=== PATIENT | male | born 1970 | race Caucasian/White ===

== ENCOUNTER 2020-07-20 15:09 | Outpatient (REF) | payer OTHER, SELFPAY | END 2020-07-20 15:10 | disposition home or self-care (01) | LOC: HO.LNP 15:09 | PROVIDERS: Visit Provider Internal Medicine | DX: Z20.828 Contact with and (suspected) exposure to other viral communicable diseases (principal) | CPT/HCPCS: 87635 ==

== ENCOUNTER 2021-02-17 09:34 | Day surgery (SDC) | payer OTHER, SELFPAY ==
--- NOTE | 2021-02-16 13:38 | P.CONAN_ITS ---
Documented by User: Sharona Roy 02/16/21 13:49 HPI - Anesthesia Eval Consult details Narrative: 50yo M for Upper Endoscopy with Balloon Dilitation Reports rxn to anesthesia as a child - ? blood poisoning, no anaphylaxis. Required O2 tent for one week post op. Has h/o colonoscopy and colon resection without problem with anesthesia. [facility] Past Medical History Medical History Celiac disease GERD (gastroesophageal reflux disease) Surgical History Surgical History (Updated 02/17/21 @ 10:25 by Hanna Johnson) H/O colonoscopy (~09/2015) History of bowel resection (~01/2018) History of esophagogastroduodenoscopy (EGD) History of placement of ear tubes (~1976) Social History Social History (Updated 02/17/21 @ 10:23 by Hanna Johnson) Smoking Status: Current every day smoker Packs Per Day: 0.5 Cigarettes Per Day: 15 Smoked in Last 30 Days: Yes Use of substances other than those prescribed or required for medical reasons: Yes Substance Use Frequency: Occasionally Are you DNR?: No Advance Directives: No Advance Directives Information Provided: Yes Meds Allergies Allergy/AdvReac Type Severity Reaction Status Date / Time animal dander [ANIMAL DANDER] Allergy Unknown ITCHY EYES Unverified 06/18/20 14:52 cat dander [CATS] Allergy Unknown EYE Unverified 06/18/20 14:52 SWELLING dog dander [DOG] Allergy Unknown EYE Unverified 06/18/20 14:52 SWELLING anesthesia not used any more Allergy Unknown anaphylaxis Uncoded 03/25/20 00:00 ( morphine AdvReac Unknown hiccups x3 Uncoded 03/25/20 00:00 days Exam Exam Date and Time: February 16, 2021 1338 Assessment and Plan Assessment Anesthesia Assessment: Chart Reviewed Documented by User: Hanna Johnson 02/17/21 10:27 [facility] Past Medical History Medical History Celiac disease GERD (gastroesophageal reflux disease) Family History Family history of problems with anesthesia: No Surgical History Surgical History (Updated 02/17/21 @ 10:25 by Hanna Johnson) H/O colonoscopy (~09/2015) History of bowel resection (~01/2018) History of esophagogastroduodenoscopy (EGD) History of placement of ear tubes (~1976) Social History Social History (Updated 02/17/21 @ 10:23 by Hanna Johnson) Smoking Status: Current every day smoker Packs Per Day: 0.5 Cigarettes Per Day: 15 Smoked in Last 30 Days: Yes Use of substances other than those prescribed or required for medical reasons: Yes Substance Use Frequency: Occasionally Are you DNR?: No Advance Directives: No Advance Directives Information Provided: Yes Meds Allergies Allergy/AdvReac Type Severity Reaction Status Date / Time animal dander [ANIMAL DANDER] Allergy Unknown ITCHY EYES Unverified 06/18/20 14:52 cat dander [CATS] Allergy Unknown EYE Unverified 06/18/20 14:52 SWELLING dog dander [DOG] Allergy Unknown EYE Unverified 06/18/20 14:52 SWELLING anesthesia not used any more Allergy Unknown anaphylaxis Uncoded 03/25/20 00:00 ( morphine AdvReac Unknown hiccups x3 Uncoded 03/25/20 00:00 days Exam Height,Weight and Vital Signs: Vital Signs Temp Pulse Resp BP Pulse Ox 02/17/21 10:11 97.5 F 94 18 133/68 98 Airway Mallampati Class: III TM Dist: >3cm Neck ROM: Full Denture: Upper Heart: RRR Lungs: CTAB Assessment and Plan Assessment Anesthesia Assessment: Anesthesia Plan Discussed and Chart Reviewed Final Anesthetic Review NPO: Yes ASA Class: II Final Preanesthetic Review: No Changes in Pt Med Stat, Meds/Allgs Chart Reviewed, Consent Obtained/Reviewed and Anes Risks/Benef Reviewed Patient Risk: Low Procedure Risk: Low Assessment/Block/Sedation in SS: Assess/Block/Sedation-SS Anesthetic Plan Anesthetic Plan: MAC: Disposition: Standard PACU
[2021-02-17 10:11] VITALS: BP 133/68; PULSE 94; RESP 18; TEMP 36.4; O2SAT 98; BMI 23.8
[2021-02-17] MEDS: Lactated Ringers 1,000 ML 100 ML IVCONT (10:20)
[2021-02-17 11:09] VITALS: BP 103/71; PULSE 87; RESP 16; TEMP 36.6; O2SAT 97
--- NOTE | 2021-02-17 11:20 | PM.OP ---
Brief Operative Note Date of Service: 02/17/21 Pre-op diagnosis: Dysphagia, Celiac disease, GERD Post-op diagnosis: other (Reflux esophagitis, Esophageal stricture, Hiatal hernia, Gastritis) Procedure: EGD with biopsies and Balloon dilation Surgeon: Paulo Mehta Anesthesia: MAC Was an Biochemistry Professor used for this Procedure?: No Estimated blood loss (mL): 4.0 Pathology: other (A. Descending duodenum B. Gastric antrum C. EG Junction at 35cm D. Esophagus at 2cm) Condition: stable Disposition: PACU
[2021-02-17 11:24] VITALS: BP 117/74; PULSE 71; RESP 17; TEMP 36.7; O2SAT 97
--- NOTE | 2021-02-17 21:48 | OP_ITS ---
SURGEON: Paulo Mehta MD INDICATIONS: The patient presents for evaluation of chronic gastroesophageal reflux, dysphagia, and history of celiac disease. Full consent has been obtained from him for the procedure, including the risks of bleeding and perforation. PREOPERATIVE DIAGNOSIS: POSTOPERATIVE DIAGNOSIS: PROCEDURE PERFORMED: ESTIMATED BLOOD LOSS: COMPLICATIONS: ANESTHESIA: Medication used, monitored anesthesia care. ASSISTANTS: SPECIMENS: PREOPERATIVE DIAGNOSES: Dysphagia and history of celiac disease. POSTOPERATIVE DIAGNOSES: Dysphagia, history of celiac disease, reflux esophagitis, mild fibrotic distal esophageal stricture, hiatal hernia, gastritis, and duodenitis. PROCEDURES PERFORMED: Esophagogastroduodenoscopy with biopsies and balloon dilation. DESCRIPTION OF PROCEDURE: The patient was placed in the left lateral decubitus position. The Olympus video gastroscope was passed in the posterior oropharynx and upper esophagus under direct vision. The scope was passed easily to the distal esophagus. The gastroesophageal junction was notable for some edema, friability, and some less than 5 mm erosions. There also appeared to be a nonobstructing fibrotic esophageal stricture just above the EG junction. The scope easily entered the stomach. There was a small to moderate sized hiatal hernia. The scope was advanced to the pylorus, and the duodenum was cannulated to the descending portion. The duodenum including the bulb was carefully inspected. There was some duodenitis in the duodenal bulb. The second and third portions of the duodenum had some edema and a question of some scalloping of the duodenal folds. Biopsies were obtained of the second and third portions of duodenum. The scope was withdrawn back to the stomach. The gastric antrum had some areas of erythema and edema consistent with gastritis. There were no erosions or ulceration. There was good peristalsis. Biopsies were obtained in the gastric antrum. The scope was retroflexed visualizing the proximal stomach carefully. There was no evidence of any mass nor ulceration. The scope was straightened and withdrawn back into the esophagus. I did use a [employer] Incremental balloon to dilate the distal esophagus and gastroesophageal junction from 18 mm to 19 mm to 20 mm at the recommended pressure for between 30 and 60 seconds each. The balloon itself pulled easily into and out of the stomach and there was really no appreciable heme noted after dilation. I did obtain biopsies of the EG junction at 35 cm. The scope was then withdrawn through the remainder of the esophagus. The proximal esophagus appeared normal without any esophageal rings nor stricture. Biopsies were obtained at 25 cm. The scope was withdrawn from the patient. He tolerated the procedure well and was returned to the recovery area in stable condition. IMPRESSION: 1. Reflux esophagitis. 2. Hiatal hernia. 3. Nonobstructing distal esophageal stricture. 4. Rule out eosinophilic esophagitis. 5. Rule out gastritis. 6. History of celiac disease. PLAN: The results of the biopsies will be checked. He was recently changed to omeprazole 40 mg daily and he was advised to continue this for better control of his reflux and heartburn symptoms. His dysphagia may be related to the mild stricture as well as to some ongoing reflux and esophageal spasm. He was advised to try to stay on a gluten-free diet as best as possible. He was advised to see me in the fall for a followup visit. MD ROBER Olmstead/CLAUDIA / [phone] MTDD
== END 2021-02-17 12:32 | disposition home or self-care (01) ==
PROVIDERS: PCP Internal Medicine; Visit Provider Internal Medicine
PROC: (CPT 43249; principal; 2021-02-17 10:30)
DX: K22.2 Esophageal obstruction (principal); K21.00 Gastro-esophageal reflux disease with esophagitis, without bleeding; K29.50 Unspecified chronic gastritis without bleeding; K29.80 Duodenitis without bleeding; K44.9 Diaphragmatic hernia without obstruction or gangrene; K90.0 Celiac disease; Z90.49 Acquired absence of other specified parts of digestive tract
CPT/HCPCS: 43249; 43239; 88305; 88342; C1726; J3010

== ENCOUNTER 2021-05-28 09:06 | Outpatient (REF) | payer OTHER, SELFPAY ==
--- NOTE | ~2021-05-28 | FL_ITS ---
EXAMINATION: FL BARIUM SWALLOW CLINICAL INFORMATION: Esophageal dysphagia. Patient notes recent endoscopy with dilatation. COMPARISON: CT abdomen 02/21/2018. Upper GI series 12/09/2011 TECHNIQUE: Barium swallow examination is performed using fluoroscopic evaluation in addition to multiple fluoroscopic spot views, including cine images during swallowing. Barium tablet also used. The patient is imaged both upright and prone and using both thick and thin sulfate along with effervescent granules. Fluoroscopy time: 1.7 minutes DAP: 4.398 Gycm2 Images: 29 FINDINGS: Swallowing function is normal and there is no aspiration. The cervical esophagus has no web or diverticulum or stricture. The cervical thoracic junction appears normal. No cervical achalasia. The thoracic esophagus shows normal motility with no obstruction, stricture, or ulceration. Barium tablet readily passed from mouth to stomach without delay. There is a small transient sliding hiatal hernia only noted during the prone Valsalva maneuver. There is prominent spontaneous gastroesophageal reflux noted during fluoroscopy to the proximal thoracic esophagus. FL/FL barium swallow IMPRESSION: 1. Small transient sliding hiatal hernia during prone Valsalva maneuver. 2. Prominent gastroesophageal reflux to the proximal thoracic esophagus. 3. No stricture or ulceration.
== END 2021-05-28 09:07 | disposition home or self-care (01) ==
LOC: HO.XRAY 09:06
PROVIDERS: PCP Internal Medicine; Visit Provider Internal Medicine
DX: R13.19 Other dysphagia (principal)
CPT/HCPCS: 74220

== ENCOUNTER 2022-02-01 07:00 | Outpatient (REF) | payer OTHER, SELFPAY ==
[2022-02-01 07:18] LABS: MANUAL DIFF FLAG NO
[2022-02-01 07:38] LABS: Basophils Absolute Auto 0.1 X10*3/uL (0.0-0.2); Basophils Percent Auto 1.4 % (0-2); Eosinophils Absolute Auto 0.2 X10*3/uL (0.0-0.4); Eosinophils Percent Auto 2.2 % (0-4); Hematocrit 48.3 % (42.0-52.0); Hemoglobin 16.2 g/dl (14.0-18.0); Imm Gran Abs Auto 0.03 X10*3/uL (0.00-0.03); Imm Gran Pct Auto 0.4 % (0.0-0.4); Lymphocytes Absolute Auto 1.9 X10*3/uL (1.2-4.9); Lymphocytes Percent Auto 24.2 % (20-40); Mean Corpuscular HGB Conc 33.5 g/dl (31.0-36.0); Mean Corpuscular Hemoglobin 31.2 pg (27.0-33.0); Mean Corpuscular Volume 92.9 fL (80.0-98.0); Mean Platelet Volume 9.3 fL (9.4-12.4); Monocytes Absolute Auto 0.7 X10*3/uL (0.1-1.2); Monocytes Percent Auto 8.6 % (2-11); Neutrophils Absolute Auto 4.9 x10*3/uL (2.0-8.3); Neutrophils Percent Auto 63.2 % (45-73); Platelet Count 217 X10*3/uL (160-400); Red Cell Distribution Width 13.2 % (11.0-16.0); White Blood Count 7.8 X10*3/uL (4.8-10.8)
[2022-02-01 08:25] LABS: Alanine Aminotransferase 19 U/L (0-40); Albumin Level 4.2 g/dL (3.5-5.0); Alkaline Phosphatase 80 U/L (39-117); Anion Gap 14 (12-20); Aspartate Amino Transferase 19 U/L (5-37); Bilirubin Total 0.4 mg/dL (0.0-1.0); Blood Urea Nitrogen 20 mg/dL (9-16); Calcium 9.3 mg/dL (8.4-10.2); Carbon Dioxide 24 mmol/L (22-29); Chloride 108 mmol/L (96-108); Cholesterol 259 mg/dL; Estimated Glomerular Filt Rate > 60; Glucose Random 91 mg/dL (60-115); HDL Cholesterol 35 mg/dL; LDL Cholesterol Calculated 145 mg/dl; Sodium 141 mmol/L (135-145); Total Protein 7.1 g/dL (6.5-8.0); Triglycerides 396 mg/dL
== END 2022-02-01 07:01 | disposition home or self-care (01) ==
LOC: HO.LAB 07:00
PROVIDERS: PCP Internal Medicine; Visit Provider Internal Medicine
DX: Z00.00 Encounter for general adult medical examination without abnormal findings (principal)
CPT/HCPCS: 36415; 80053; 80061; 85025

== ENCOUNTER 2025-06-11 03:20 | Emergency (ER) | payer OTHER, SELFPAY ==
--- NOTE | ~2025-06-11 | XR_ITS ---
CLINICAL HISTORY: dyspnea, productive cough 1 view chest x-ray Comparison: None provided Findings: No consolidation or effusion. Heart size is normal. No acute fracture. IMPRESSION: No consolidation. This document has been electronically signed by: Zay Combs MD on 06/11/2025 04:38:27
[2025-06-11 03:23] VITALS: BP 150/83; PULSE 90; RESP 22; TEMP 36.7; O2SAT 96; BMI 24.7
--- NOTE | 2025-06-11 03:36 | ECG_ITS ---
Test Reason : SOB Blood Pressure : */* mmHG Vent. Rate : 91 BPM Atrial Rate : 91 BPM P-R Int : 102 ms QRS Dur : 100 ms QT Int : 414 ms P-R-T Axes : 81 45 103 degrees QTcB Int : 509 ms Normal sinus rhythm Lrsfn-Eihxzwcki-Lteug Abnormal ECG No previous ECGs available Referred By: Aicha Acosta Electronically Signed By: FAWAD FRIEDMAN MD
--- NOTE | 2025-06-11 03:37 | ED_ITS ---
HPI - SOB/Dyspnea General Chief Complaint: Dyspnea Stated Complaint: difficulty breathing/ ? pneumonia Time Seen by Provider: 06/11/25 03:26 Source: patient Mode of arrival: ambulatory Limitations: no limitations History of Present Illness ED Provider: Dr. Balbina Acosta HPI Narrative: 54-year-old male with a history of mild asthma presenting with shortness of breath and cough that has been ongoing for the last 3 days or so. Describes a cough that is so severe that he sometimes nearly passes out. Has never lost consciousness. Denies associated chest pain. No reported fever. No known sick contacts or recent travel. Denies lower extremity edema or pain. Denies abdominal pain, nausea, vomiting, bowel changes or urinary complaints. Has been using his inhaler without relief. Admits that in the last couple of hours he is ?used it so many times he can not count?. Related Data Previous Rx's ?Medication ?Instructions ?Recorded albuterol sulfate 90 mcg/actuation 2 inh inhalation Q4 H PRN shortness 06/11/25 breath activated powder inhaler of breath #1 ea codeine 10 mg-guaifenesin 100 mg/5 5 ml PO Q6H PRN cou gh #118 mL 06/11/25 mL oral liquid (G Tussin AC) prednisone 50 mg tablet 50 mg PO DAILY 5 days #5 tab s 06/11/25 Allergies Allergy/AdvReac Type Severity Reaction Status Date / Time animal dander (ANIMAL DANDER) Allergy Unknown ITCHY EYES Verified 06/11/25 03:25 cat dander (CATS) Allergy Unknown EYE Verified 06/11/25 03:25 SWELLING dog dander (DOG) Allergy Unknown EYE Verified 06/11/25 03:25 SWELLING anesthesia not used any more Allergy Unknown anaphylaxis Uncoded 03/25/20 00:00 ( morphine AdvReac Unknown hiccups x3 Uncoded 03/25/20 00:00 days Review of Systems Review of Systems: As per HPI, full review of systems performed and negative but for the above mentioned pertinent positives and negatives. [facility] Past Medical History Medical History Celiac disease GERD (gastroesophageal reflux disease) Surgical History History of esophagogastroduodenoscopy (EGD) History of placement of ear tubes (~1976) H/O colonoscopy (~09/2015) History of bowel resection (~01/2018) Social History Social History Cigarette Packs Per Day: 0.5 Cigarettes Per Day: 15 Smoked in Last 30 Days: Yes Advance Directives: No Physical Exam Exam: Exam: GENERAL: Ill-appearing, moderate respiratory distress. SKIN: Normal skin color for ethnicity, warm, dry, no rashes noted. HEENT: Normocephalic, atraumatic, no stridor, EOMI. NECK: Soft, supple, full ROM, midline structures nontender, no step-offs, no deformities, no lymphadenopathy. CHEST: Heart regular tachycardia, symmetric chest rise and fall. PULMONARY: Diffuse wheezes throughout, tachypnea, poor air movement bilaterally, moderate respiratory distress. ABDOMINAL: Soft, nontender, quiet bowel sounds in all quadrants. : Deferred. MUSCULOSKELETAL: Normal tone, full range of motion, no deformities, no peripheral edema. NEURO: Alert and oriented to person, CN II through XII intact, no focal neurologic deficits. PSYCHIATRIC: Anxious affect, appropriate demeanor. Vital Signs: Vital Signs: Last Vital Signs Temp 97.9 F 06/11/25 03:56 Pulse 86 06/11/25 04:38 Resp 14 06/11/25 04:38 BP 142/81 H 06/11/25 04:38 Pulse Ox 98 06/11/25 04:38 O2 Del Method Room Air 06/11/25 04:38 BMI result Body Mass Index 24.7 Medications Administered Discontinued Medications Generic Name Dose Route Start Last Admin Trade Name Wesq PRN Reason Stop Dose Admin Albuterol Sulfate 2.5 mg/ 0 mg 06/11/25 04:17 06/11/25 04:22 Albuterol/Ipratropium 3 ml INHALE 06/11/25 04:18 2 dose ONCE ONE Administration Magnesium Sulfate 2 gm in 50 mls @ 150 mls/hr 06/11/25 03:35 06/11/25 04:37 Magnesium Sulfate/H2o IV 06/11/25 03:54 Infused ONCE ONE Infusion Methylprednisolone Sodium Succinate 60 mg 06/11/25 03:35 06/11/25 03:51 Methylprednisolone Sod Succ 125 Mg/2 Ml Vial IVPUSH 06/11/25 03:36 60 mg ONCE ONE Administration Medical Decision Making Medical Decision Making [facility] Narrative: Patient presents today with chief complaint of shortness of breath. Differential diagnosis includes, but is not limited to, upper respiratory infection, pneumonia, COPD exacerbation, asthma exacerbation, CHF, pneumothorax, pleural effusion, pulmonary embolism, ACS. Broad-based work-up will be initiated to evaluate for etiology of patient's symptoms. Differential Diagnosis Differential Diagnoses: The differential diagnosis associated with the presentation includes (As above) Admission/Observation Consideration of admission/observation: Escalation of care including admission/observation considered Lab Data [facility] Lab Attestation statement: I reviewed the patient's lab results. Labs: Lab Results 06/11/25 Range/Units 03:44 Influenza Type A (PCR) NEGATIVE (Negative) Influenza Type B (PCR) NEGATIVE (Negative) RSV RNA Qual (PCR) NEGATIVE (Negative) SARS-CoV-2 RNA (RT-PCR) NEGATIVE (Negative) Independent Interpretation I performed an independent interpretation of an: EKG and Plain X-Ray Interpretation: My independent interpretation of the ECG reveals normal sinus rhythm with rate of 91, normal axis, short W[place] interval, slurring of the upstroke in the QRS segment in the lateral leads, concern for potential WPW, no ST elevations or depressions to suggest ischemic changes, no previous for comparison. Radiology Impression Discussion of test interpretation with radiology: I have reviewed the radiologist's reading. Chronic Conditions Patient?s care impacted by: Other (asthma) Discharge Plan Discharge Clinical Impression: Asthma with acute exacerbation, Acute viral bronchitis Patient Disposition: Home, Self-Care Instructions: Asthma (ED), Acute Bronchitis (ED) Additional Instructions: Use your inhaler as needed for wheezing. If you need to use it more than once every 2 hours, he should probably come to the hospital for evaluation. Return to the ER with any new or worsening symptoms including: Fevers greater than 100?, worsening shortness of breath, changes in your sputum color, any new symptom that concerns you. Call 911 with any medical emergency. Prescriptions: New prednisone 50 mg tablet 50 mg PO DAILY 5 Days Qty: 5 0RF codeine-guaifenesin [G Tussin AC] 10-100 mg/5 mL liquid 5 ml PO Q6H PRN (Reason: cough) Qty: 118 0RF albuterol sulfate 90 mcg/actuation aerosol powdr breath activated 2 inh inhalation Q4H PRN (Reason: shortness of breath) Qty: 1 0RF Stand Alone Forms: Work/School Release Print Language: Senegalese
--- OUTSIDE RECORDS SUMMARY | 2025-06-11 03:42 | XMS_ITS | Clinical Summary ---
Author Organization [facility] Address [address] [facility] [place] [address] Care Team Providers Care Music Professor Name Role Phone Wayne Boggs APRN Primary Care Provide r Allergies Active Allergy Reactions Criticality Noted Date Comments Opioids - Morphine Analogues Other (See Comments) 09/16/2024 Excessive hicups Medications omeprazole (PriLOSEC) [address] Tillman ns:Laryngopharyn geal reflux (LPR) Take one tablet by mouth 1/2 hour before dinner. 30 capsule 11 09/16/2024 Active Active Problems No known active problems Social History Tobacco Use Types Packs/Day Years Used Date Smoking Tobacco: Every Day Cigarettes Smokeless Tobacco: Current Tobacco Cessation:Ready to Q uit: Not Asked; Counseling Given: Not Answered Sex and Gender Information Value Date Recorded Sex Assigned at Not on file Legal Sex Male 10:23 AM EDT Gender Identity Not on file Sexual Orientation Not on file Last Filed Vital Signs Vital Sign Reading Time Taken Comments Blood Pressure 142/92 09/16/2024 1:07 PM EST Pulse 77 09/16/2024 1:07 PM EST Temperature - - Respiratory Rate - - Oxygen Saturation 99% 09/16/2024 1:07 PM EST Inhaled Oxygen Concentration - - Weight - - Height - - Body Mass Index - - Plan of Treatment Health Maintenance Due Date Last Done Comments CT Colonography 1972 Colonoscopy 1972 Colorectal Cancer Screening 1972 FIT DNA 1972 FIT 1972 Sigmoidoscopy (10 year) with FIT yearly 1972 Sigmoidoscopy 1972 HIV screen 1990 Hepatitis C Screening 1990 Lipid Screening 1990 Hepatitis B vaccine (0-59 yrs) and Risk (1) 1991 Pneumoccocal Vaccine: 50+ (1 of 2 - PCV) 1991 Tetanus/Diphtheria/Pertussis Vaccines (1 - Tdap) 07/27 Zoster vaccine (1 of 2) 2022 Covid-19 Vaccine (1 - season) 2025 Influenza (Flu) vaccine (1 o f 1 - Influenza standard series) 06/02/2025 Insurance [facility] Care Teams Music Professor Relationship Specialty Start Date End Date Wayne Boggs APRN PCP - General Internal Medicine 09/16/24
--- OUTSIDE RECORDS SUMMARY | 2025-06-11 03:42 | XMS_ITS | Encounter Summary ---
Author Organization [facility] [place] [address] Care Team Providers Care Director Diversity Name Role Phone Wayne Boggs APRN Primary Care Provide r Encounter Details Date Type Department Care Team (Late st Contact Info) Description 10/23/2023 Notes Only [place] [address] [place] [address] [place] [address] Social History Tobacco Use Types Packs/Day Years Used Date Smoking Tobacco: Never Assessed Sex and Gender Information Value Date Recorded Sex Assigned at Not on file Legal Sex Male 10:23 AM EDT Gender Identity Not on file Sexual Orientation Not on file documented as of this encounter Plan of Treatment Not on file documented as of this encounter Visit Diagnoses Not on filedocumented in this encounter Care Teams Director Diversity Relationship Specialty Start Date End Date Wayne Boggs APRN PCP - General Internal Medicine 09/16/24 documented as of this encounter
--- OUTSIDE RECORDS SUMMARY | 2025-06-11 03:42 | XMS_ITS | Clinical Summary ---
Author Organization [facility] Address [address] [place] [address] Care Team Providers Care Political Advisor Name Role Phone Unavailable Primary Care Provider Unavailabl e Social History Tobacco Use Types Packs/Day Years Used Date Smoking Tobacco: Never Assessed Sex and Gender Information Value Date Recorded Sex Assigned at Not on file Legal Sex Male 2:42 PM EST Gender Identity Not on file Sexual Orientation Not on file Plan of Treatment Health Maintenance Due Date Last Done Comments DTaP,Tdap,and Td Vaccines (1 - Tdap) 1991 Hepatitis B Vaccines (1 of 3 - 19+ 3-dose series) 1991 Pneumococcal Vaccine: 50+ Ye ars (1 of 1 - PCV) 2022 Zoster Vaccines (1 of 2) 2022 COVID-19 Vaccine (1 - 2023-2 5 season) 2024 Depression Screening 10/02/2024 Influenza Vaccine (#1) 2025 HIB Vaccines Aged Out No longer eligi ble based on patient's age to complete this topic HPV Vaccines Aged Out No longer eligi ble based on patient's age to complete this topic Hepatitis A Vaccines Aged Out No long er eligible based on patient's age to complete this topic IPV Vaccines Aged Out No longer eligi ble based on patient's age to complete this topic MMR Vaccines Aged Out No longer eligi ble based on patient's age to complete this topic Meningococcal ACWY Vaccine Aged Out N o longer eligible based on patient's age to complete this topic Meningococcal B Vaccine Aged Out No l onger eligible based on patient's age to complete this topic RSV Immunization Patients Un melissa 20 months Aged Out No longer eligible b ased on patient's age to complete this topic Varicella Vaccines Aged Out No longer eligible based on patient's age to complete this topic
[2025-06-11] MEDS: Magnesium Sulfate/H2O 2 GM/50 ML PIGGYBACK IV (03:52)
[2025-06-11 03:56] VITALS: BP 143/89; PULSE 94; RESP 13; TEMP 36.6; O2SAT 97
[2025-06-11] MEDS: Albuterol Sulfate 2.5 MG, Albuterol/Iprat 2.5/0.5MG 3 ML 3 ML INHALE (04:22)
[2025-06-11 04:23] VITALS: PULSE 82; RESP 15; O2SAT 96
[2025-06-11 04:28] LABS: Resp Syncy Virus RNA Qual PCR NEGATIVE (Negative); SARS COV2 PCR INHOUSE NEGATIVE (Negative)
[2025-06-11 04:38] VITALS: BP 142/81; PULSE 86; RESP 14; O2SAT 98
[2025-06-11 06:52] VITALS: BP 127/70; PULSE 88; RESP 14; TEMP 36.6; O2SAT 95
[2025-06-11 07:13] VITALS: BP 127/70; PULSE 88; RESP 14; TEMP 36.6; O2SAT 95
== END 2025-06-11 07:15 | disposition home or self-care (01) ==
PROVIDERS: Emergency Provider Emergency Medicine
DX: J20.8 Acute bronchitis due to other specified organisms (principal); J45.901 Unspecified asthma with (acute) exacerbation; R05.9 Cough, unspecified; R06.02 Shortness of breath; R06.00 Dyspnea, unspecified; Z03.818 Encounter for observation for suspected exposure to other biological agents ruled out
CPT/HCPCS: 71045; 87637; 93005; 94640; 96365; 96375; 99284; 99285; J2919; J3475

== ENCOUNTER → 2025-06-11 03:35 | Outpatient (BNV) | payer OTHER, SELFPAY | PROVIDERS: Emergency Provider Emergency Medicine; Visit Provider Radiology Diagnostic Radiology | DX: R06.00 Dyspnea, unspecified (principal) | CPT/HCPCS: 71045 ==

== ENCOUNTER → 2025-06-11 03:36 | Outpatient (BNV) | payer OTHER, SELFPAY | PROVIDERS: Emergency Provider Emergency Medicine; Visit Provider Internal Medicine Cardiovascular Disease | DX: R94.31 Abnormal electrocardiogram [ECG] [EKG] (principal); I45.6 Pre-excitation syndrome | CPT/HCPCS: 93010 ==